=== PATIENT | female | born 1940 | race Caucasian/White ===

== ENCOUNTER 2022-10-05 03:09 | Inpatient (IN) | payer OTHER ==
[~2022-10-05] VITALS: Ht 157.5 cm; Wt 64.9 kg
[2022-10-05] VITALS: BP_SYST 141
[2022-10-05 03:09] VITALS: BP_SYST 147
--- NOTE | 2022-10-05 03:09 | NUR ---
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 Report given to MIKE Dill.
--- NOTE | 2022-10-05 03:10 | NUR ---
# 14 FR In and Out catheter with use of sterile technique. Immediate return of 20 ml YELLOW, CLOUDY urine noted. Urine sample collected and sent to lab. Pt tolerated procedure WELL. Patient unable to toilet self.
--- NOTE | 2022-10-05 03:15 | NUR ---
Dr. Bob at bedside.
--- NOTE | 2022-10-05 03:44 | NUR ---
PT BIB ALS FROM HOME W C/O FALL WITNESSED BY . ALS STATED THAT WAS ASSISTING PATIENT TO THE RESTROOM WHEN PATIENT FELL. STATED TO ALS THAT PATIENT WAS NOT ACTING HERSELF AROUND THE TIME OF FALL. PATIENT ARRIVED SLEEPING AND DIFFICULT TO AROUSE. SKIN INTACT, NO INJURIES NOTED. THERE IS AN OLD BRUISE TO THE MID UPPER FOREHEAD.
[2022-10-05 04:09] LABS: BILIRUBIN,URINE NEGATIVE (NEGATIVE); BLOOD, URINE NEGATIVE (NEGATIVE); COLOR,URINE YELLOW (YELLOW); GLUCOSE,URINE NEGATIVE (NEGATIVE); KETONES,URINE NEGATIVE (NEGATIVE); LEUKOCYTE ESTERASE ,URINE TRACE (NEGATIVE); NITRITE, URINE POSITIVE (NEGATIVE); PROTEIN URINE TRACE (NEGATIVE); UROBILINOGEN,URINE 0.2 (0.2-1.0)
[2022-10-05 04:14] LABS: BASOPHILS # (AUTO) 0.1 K/uL (0.0-0.2); BASOPHILS % (AUTO) 0.7 % (0.0-2.0); EOSINOPHILS # (AUTO) 0.2 K/uL (0.0-0.4); EOSINOPHILS % (AUTO) 2.4 % (0.0-4.0); HEMATOCRIT 35.8 % (36-48); HEMOGLOBIN 11.6 g/dL (12.0-16.0); LYMPHOCYTES # (AUTO) 1.7 K/uL (1.0-5.5); LYMPHOCYTES % (AUTO) 17.7 % (20.5-51.5); MEAN CORPUSCULAR HEMOGLOBIN 28 pg (27-31); MEAN CORPUSCULAR HGB CONC 33 % (32-36); MEAN CORPUSCULAR VOLUME 85 fL (79.0-98.0); MONOCYTES # (AUTO) 0.9 K/uL (0.0-1.0); MONOCYTES % (AUTO) 9.1 % (1.7-9.3); NEUTROPHILS # (AUTO) 6.9 K/uL (1.8-7.7); NEUTROPHILS % (AUTO) 70.1 % (40.0-70.0); PLATELET COUNT (AUTO) 247 K/uL (130-430); RED BLOOD CELL COUNT(AUTO) 4.23 MIL/uL (4.2-6.2); RED CELL DISTRIBUTION WIDTH 16.1 % (9.0-15.0); WHITE BLOOD COUNT (AUTO) 9.9 K/uL (4.8-10.8)
[2022-10-05 04:16] LABS: ANION GAP 10 (5-15); CALCIUM 9.2 mg/dL (8.4-11.0); CHLORIDE 103 mmol/L (98-107); CREATININE 1.24 mg/dL (0.55-1.30); GLUCOSE 125 mg/dL (70-99); UREA NITROGEN, BLOOD 28 mg/dL (8-21)
[2022-10-05 04:21] LABS: ALANINE AMINOTRANSFERASE 19 U/L (12-78); ALBUMIN 3.1 g/dL (3.4-4.8); ASPARTATE AMINOTRANSFERASE 15 U/L (10-37); TOTAL BILIRUBIN 0.6 mg/dL (0.0-1.0)
[2022-10-05 04:28] LABS: CLARITY/URINE SLIGHTLY CLOUDY (CLEAR)
[2022-10-05 04:31] LABS: BACTERIA,URINE MANY /HPF (None Seen); RBC,URINE 0-3 /HPF (0-3)
[2022-10-05] MEDS ORDERED: D5/0.45 NS 1,000 ML IV SCH (05:00)
[2022-10-05] MEDS ORDERED: cefTRIAXone 1 GM IVPB PREMIX 50 ML IV ONE (05:00)
[2022-10-05] MEDS ORDERED: PANT40TA45 PO (05:03)
[2022-10-05] MEDS ORDERED: OLAN5TAB71 PO (05:03)
[2022-10-05] MEDS ORDERED: HYDR-3698 PO (05:03)
[2022-10-05] MEDS ORDERED: ALBU2.5V7 HHN (05:03)
[2022-10-05] MEDS ORDERED: AMLO5TAB92 PO (05:03)
[2022-10-05] MEDS ORDERED: FLUT1BLS15 INH (05:03)
[2022-10-05] MEDS ORDERED: ATOR10TA68 PO (05:03)
[2022-10-05] MEDS ORDERED: ESCI-6 PO (05:03)
[2022-10-05] MEDS ORDERED: GABAPENTIN (05:03)
[2022-10-05] MEDS ORDERED: PRED10TA PO (05:03)
--- NOTE | 2022-10-05 05:10 | NUR ---
REC PATIENT FROM [facility]. PT WAS SEIZING WHEN REC, FOR 1 MINUTE. MD AT BEDSIDE. SEIZURE PRECAUTIONS IN PLACE AND CONNECTED TO MONITOR. VSS. PT A&O X0 WHICH IS BASELINE FROM ARRIVAL. PT BREFIELY AROUSABLE TO PHYSICAL STIMULI.
[2022-10-05] MEDS ORDERED: NS IV ONE (05:15)
[2022-10-05] MEDS ORDERED: LEVETIRACETAM IV ONE (05:15)
--- NOTE | 2022-10-05 05:35 | NUR ---
DR. CEDENO CALLED AND MADE AWARE OF SEIZURE. NEW ORDERS GIVEN.
--- NOTE | 2022-10-05 05:46 | NUR ---
Admit bed requested Patient will be admitted to care of . Admitted to TELEMETRY unit. Diagnosis UTI SEPSIS Inpatient (Yes or No) YES Observation (Yes or No) NO Orientation concerns or request close to nursing station (Yes or No) NO Covid Status NEGATIVE On vent or bipap NO Isolation requirements NO Needs a sitter NO From Home (Yes or if No enter name of facility) HOME Requires Dialysis (Yes or No) NO Med Rec Completed (Yes of No) YES
--- NOTE | 2022-10-05 07:13 | NUR ---
REPORT GIVEN TO LARON MCKEON TO ASSUME CARE.
--- NOTE | 2022-10-05 07:15 | NUR ---
RECEIVED REPORT FROM [facility] AND WILL ASSUME CARE
--- NOTE | 2022-10-05 07:20 | NUR ---
PT SLEEPING QUIETLY AT THIS TIME. NO DISTRESS, VSS. WILL CONTINUE TO MONITOR
[2022-10-05] MEDS: CEFEPIME 1 GM in D5W 50 ML IV SCH (08:55)
--- NOTE | 2022-10-05 09:01 | NUR ---
SLEEPING QUIETLY. NO CHANGES.
--- NOTE | 2022-10-05 09:45 | NUR ---
PT SLEEPING QUIETLY, NO CHANGES. VSS
[2022-10-05 09:56] LABS: BARBITURATE, URINE NEGATIVE (NEG <=200); BENZODIAZEPINE, URINE NEGATIVE (NEG <=150); CANNABINOID, URINE NEGATIVE (NEG <=50); COCAINE, URINE NEGATIVE (NEG <=150); METHAMPHETAMINES SCREEN,URINE NEGATIVE (NEG <=500); OPIATE, URINE NEGATIVE (NEG <=100); PHENCYCLIDINE SCREEN,URINE NEGATIVE (NEG <=25); UR TRICYCLIC ANTIDEPRESSANTS NEGATIVE (NEG <=300); URINE AMPHETAMINE NEGATIVE (NEG <=500); URINE METHADONE NEGATIVE (NEG <=200); URINE OXYCODONE SCREEN NEGATIVE (NEG <=100); URINE PROPOXYPHENE SCREEN NEGATIVE (NEG <=300)
[2022-10-05] MEDS: levETIRAcetam 1,000 MG in NS 100 ML IV SCH ×2 (09:57→22:18)
--- NOTE | 2022-10-05 11:10 | NUR ---
PT IS HARD TO AROUSE, REPOSITIONED AND NOW A BIT MORE AROUSABLE. MOANING AND MOVING ALL EXTREMITIES. VSS
--- NOTE | 2022-10-05 12:01 | NUR ---
CALL TO DR CEDENO, NEW ORDERS RECEIVED.
--- NOTE | 2022-10-05 12:14 | NUR ---
ADMISSION CONSULTS HAVE BEEN PAGED ORDERED BY DR. CEDNEO
--- NOTE | 2022-10-05 12:19 | NUR ---
TAKEN FOR IMAGINING AT RADIOLOGY VIA D[facility]
--- NOTE | 2022-10-05 13:32 | NUR ---
SPOKE WITH DAUGHTER CHAD AND ALL PERSONAL INFORMATION UPDATED, GIVEN TO ADMITTING TO FIX
--- NOTE | 2022-10-05 14:10 | NUR ---
Patient will be admitted to care of DR CEDENO. Admitted to TELE unit. Will go to room 132B. Belongings list completed. Complete and up to date summary report printed. SBAR report to be given at bedside with opportunity for questions.WILL GIVE BEDSIDE REPORT TO TELE NURSE
--- NOTE | 2022-10-05 14:12 | NUR ---
CALL PLACED TO DAUGHTER CHAD AND TOLD ABOUT MOVE TO TELE UNIT
--- NOTE | 2022-10-05 14:39 | NUR ---
CONSULTATION PAGED/CALLED Reason for Consultation: [] UTI, SEPSIS Person Who was Notified: [] JAMES Consulting Physician: [] DR NUNN Levers Lace Machine Operator Specialty: [] ID Ordering Physician: [] DR CEDENO
--- NOTE | 2022-10-05 14:40 | NUR ---
TEXTED NEURO CONSULT TO DR Lowell DANIELS.
--- NOTE | 2022-10-05 14:49 | NUR ---
Report received from MILADY Mckeon RN for continuity of care. Patient is alert and oriented x1 with periods of wakefulness and lethargy. Patient on 2L NC. Respiration even and unlabored. Patient appears to be sleeping, but able to wake up upon movement. Linens removed from underneath. Patient vital signs stable. Daughter called to be informed that patient arrived to unit. Patient on IV fluids. Will continue to monitor. Call light within reach.
[2022-10-05 14:53] VITALS: BP_SYST 152
[2022-10-05] MEDS: KCL 20 mEq in D5/0.45NS 1000mL 1,000 ML IV SCH (15:30)
[2022-10-05] MEDS ORDERED: LevALBUTEROL HCL 1.25 MG/0.5 ML *CONC.* VIAL.NEB (XOPENEX CONC.) INH PRN (15:30)
--- NOTE | 2022-10-05 15:33 | NUR ---
Dr. Palafox made aware of potassium lab values and blood pressure. New orders noted and carried out.
--- NOTE | 2022-10-05 16:05 | NUR ---
ST EVAL COMPLETED. ST TX NOT INDICATED AT THIS TIME. RECOMMEND PO DIET OF MECHANICAL SOFT CHOPPED AND THIN LIQUIDS. 1:1 FEEDER AND FULL ASPIRATION PRECAUTIONS.
[2022-10-05 16:14] VITALS: BP_SYST 154
--- NOTE | 2022-10-05 19:02 | NUR ---
Dr. Moses at bedside to see patient. Will continue to monitor.
[2022-10-05 19:40] VITALS: BP_SYST 156
--- NOTE | 2022-10-05 20:25 | NUR ---
BEDSIDE REPORT RECEIVED/ INITIAL NOTE LATE REPORT RECEIVED DUE TO STAFF ASSIGNMENT CHANGE. BEDSIDE REPORT RECEIVED AT THIS TIME. AT INITIAL ASSESSMENT, PATIENT IS LETHARGIC, SHE AWAKES TO LIGHT TOUGH BUT IS NONVERBAL. PATIENT SEEMS TO BE ABLE TO TRACK NURSE WITH HER EYES PERIFOCALLY FOR A FEW SECONDS. SHE IS CONFUSED AND UNABLE TO FOLLOW DIRECTIONS AT THIS TIME. PATIENT WILL BE KEPT IN A ROOM WITHIN EYESITE OF NURSING STATION FOR CLOSE MONITORING. BED IS LOCKED, ALARMED, AND AT THE LOWEST LEVEL. FALL, SAFETY, ASPIRATION, RESPIRATORY, AND SEIZURE PRECAUTIONS WILL BE TAKEN THROUGHOUT THE SHIFT.
[2022-10-05] MEDS: predniSONE 10 MG TABLET PO SCH (21:00)
[2022-10-05] MEDS: ENOXAPARIN SODIUM 30 MG/0.3 ML SYRINGE SUBCUT SCH (22:18)
[2022-10-05] MEDS: LevALBUTEROL HCL 1.25 MG/0.5 ML *CONC.* VIAL.NEB (XOPENEX CONC.) INH SCH (22:57)
--- NOTE | 2022-10-05 23:00 | NUR ---
COMMUNICATION W/ DR. PAO CEDENO PAGED AT THIS TIME, MD WAS MADE AWARE THAT PATIENT IS SHAKING IN A WAY THAT LOOKS LIKE SEIZURES BUT SHE IS ABLE TO TRACK NURSE WITH HER EYES MOMENTARILY. MD MADE AWARE THAT PATIENT IS STILL NONVERBAL/ CONFUSED/ LETHARGIC/ MAKING SOUNDS LIKE SHE IS VOMITING BUT WITHOUT ANY EMESIS NOTED. MD ALSO MADE AWARE THAT PATIENT'S BLOOD PRESSURE IS ELEVATED (SBP OVER 200). UPON ASSESSMENT BY RN AND RT, NO SIGNS OF ASPIRATION NOTED. MD GAVE NEW ORDERS, ALL ORDERS READ BACK AND VERIFIED. STATED NO PRN ATIVAN FOR NOW.
--- NOTE | 2022-10-05 23:20 | NUR ---
HYGIENE CARE HYGIENE CARE PROVIDED AT THIS TIME, FRESH LINENS PROVIDED. PATIENT REPOSITIONED FOR COMFORT. PATIENT TOLERATED WELL.
[2022-10-05] MEDS: hydrALAZINE HCL 20 MG/ML VIAL IVP PRN (23:30)
[2022-10-05] MEDS: BUDESONIDE 0.5 MG/2 ML AMPUL.NEB INH SCH (23:35)
[2022-10-06] VITALS: BP_SYST 141
--- NOTE | 2022-10-06 02:00 | NUR ---
HYGIENE CARE HYGIENE CARE PROVIDED AT THIS TIME, FRESH LINENS PROVIDED. PATIENT REPOSITIONED FOR COMFORT. PATIENT TOLERATED WELL.
--- NOTE | 2022-10-06 04:20 | NUR ---
PATIENT AGITATED / DR. CEDENO PAGED PATIENT HAS BECOME VERY AGITATED AT THIS TIME, RESTLESS, AND SHE IS CONTINUOUSLY YELLING SOUNDS WITHOUT FORMING WORDS. DESPITE NUMEROUS ATTEMPTS TO REPOSITION PATIENT FOR COMFORT, SHE CONTINUES TO SQUIRM AROUND WITH MUCH STRENGTH. BED RAILINGS HAVE SEIZURE PADS AND PILLOWS TO PROTECT HER FROM HITTING HER HEAD OR INJURING HER BODY. , BUT TWO NURSES NEEDED TO STAY WITH HER AT BEDSIDE TO PREVENT HER FROM FALLING OFF THE BED/ INJURING HERSELF BY HITTING BED RAILINGS/ ACCIDENTALLY PULLING OUT HER TUBINGS. DR. CEDENO PAGEIrwin AT THIS TIME/ AWAITING CALL BACK.
--- NOTE | 2022-10-06 05:00 | NUR ---
PAGED DR. CEDENO SECOND PAGE TO DR. CEDENO. AWAITING CALL BACK.
[2022-10-06] MEDS ORDERED: HALOPERIDOL LACTATE 5 MG/ML VIAL IM ONE (06:00)
--- NOTE | 2022-10-06 06:00 | NUR ---
COMMUNICATION W/ DR. PAO CEDENO PAGED BACK AT THIS TIME, PATIENT'S CHANGE OF CONDITION/ AGITATION/ RESTLESSNESS COMMUNICATED. MD GAVE NEW ORDER, ORDER READ BACK AND VERIFIED.
[2022-10-06 06:21] LABS: ANION GAP 11 (5-15); BASOPHILS # (AUTO) 0.1 K/uL (0.0-0.2); BASOPHILS % (AUTO) 0.5 % (0.0-2.0); CALCIUM 9.6 mg/dL (8.4-11.0); CHLORIDE 108 mmol/L (98-107); CREATININE 1.03 mg/dL (0.55-1.30); GLUCOSE 117 mg/dL (70-99); HEMATOCRIT 40.7 % (36-48); HEMOGLOBIN 12.9 g/dL (12.0-16.0); LYMPHOCYTES # (AUTO) 0.7 K/uL (1.0-5.5); LYMPHOCYTES % (AUTO) 4.7 % (20.5-51.5); MEAN CORPUSCULAR HEMOGLOBIN 27 pg (27-31); MEAN CORPUSCULAR HGB CONC 32 % (32-36); MEAN CORPUSCULAR VOLUME 85 fL (79.0-98.0); MONOCYTES # (AUTO) 0.7 K/uL (0.0-1.0); MONOCYTES % (AUTO) 4.6 % (1.7-9.3); NEUTROPHILS # (AUTO) 13.6 K/uL (1.8-7.7); NEUTROPHILS % (AUTO) 90.2 % (40.0-70.0); PLATELET COUNT (AUTO) 318 K/uL (130-430); RED BLOOD CELL COUNT(AUTO) 4.78 MIL/uL (4.2-6.2); RED CELL DISTRIBUTION WIDTH 16.2 % (9.0-15.0); UREA NITROGEN, BLOOD 17 mg/dL (8-21); WHITE BLOOD COUNT (AUTO) 15.1 K/uL (4.8-10.8)
--- NOTE | 2022-10-06 06:45 | NUR ---
CLOSING NOTE PATIENT HAD A CHANGE OF CONDITION AROUND 0300 AM, SHE IS NO LONGER LETHARGIC, BUT HAS BECOME VERY AGITATED AND RESTLESS. HALDOL 3 MG IM ONE TIME DOSE ORDERED BY DR. CEDENO GIVEN AT THIS TIME. BED IS LOCKED, ALARMED, AND AT THE LOWEST LEVEL. PATIENT IS IN A ROOM WITHIN EYESITE OF NURSING STATION FOR CLOSE MONITORING. FALL, SAFETY, RESPIRATORY, AND ASPIRATION PRECAUTIONS HAVE BEEN TAKEN THROUGHOUT THE SHIFT. WILL CONTINUE TO MONITOR CLOSELY UNTIL REPORT IS GIVEN AT BEDSIDE TO AM NURSE.
[2022-10-06] MEDS: KCL 20 mEq in D5/0.45NS 1000mL 1,000 ML IV SCH ×2 (06:49→21:25)
[2022-10-06] MEDS: BUDESONIDE 0.5 MG/2 ML AMPUL.NEB INH SCH ×2 (06:58→20:05)
[2022-10-06] MEDS: LevALBUTEROL HCL 1.25 MG/0.5 ML *CONC.* VIAL.NEB (XOPENEX CONC.) INH SCH ×3 (06:59→23:34)
--- NOTE | 2022-10-06 08:00 | NUR ---
OPENING NOTES: PT IN BED AGITATED, RESTLESS ATTEMPTING TO GET OUT OF BED. NON-VERBAL AND CONFUSED. A/O X 0. BED LOW IN LOCKED POSITION, BED ALARM ON AND CALL LIGHT WITHIN REACH.
[2022-10-06] MEDS: CEFEPIME 1 GM in D5W 50 ML IV SCH (08:16)
[2022-10-06 08:21] VITALS: BP_SYST 153
--- NOTE | 2022-10-06 08:56 | NUR ---
safety patient is attempting to get out of bed, very confused, twisting in bed, pulled out IV. Called and spoke with Dr Palafox, asked for restraints for patients safety. Dr Palafox refused. New orders received
--- NOTE | 2022-10-06 08:59 | NUR ---
electrician helper powerhouse informed electrician helper powerhouse that Dr Palafox ordered sitter.
[2022-10-06] MEDS: ATORVASTATIN 10 MG TABLET PO SCH (09:00)
[2022-10-06] MEDS ORDERED: PANTOPRAZOLE SODIUM 40 MG TAB PO SCH (09:00)
[2022-10-06] MEDS: levETIRAcetam 1,000 MG in NS 100 ML IV SCH ×2 (09:00→21:26)
[2022-10-06] MEDS: PANTOPRAZOLE SODIUM 40 MG/VIAL (PROTONIX) IVP SCH (09:00)
[2022-10-06] MEDS: predniSONE 10 MG TABLET PO SCH ×2 (09:00→21:00)
[2022-10-06] MEDS: amLODIPine BESYLATE 5 MG TABLET PO SCH (09:00)
--- NOTE | 2022-10-06 10:22 | NUR ---
NOTES: Paged Dr. Farfan about picc line insertion order.
--- NOTE | 2022-10-06 10:35 | NUR ---
: Spoke with Dr. ac regarding pt need for IV access. New orders received
[2022-10-06 11:10] LABS: PROTHROMBIN TIME 9.9 SECS (9.5-12.5)
--- NOTE | 2022-10-06 11:24 | NUR ---
consent spoke with patients daughter Eileen Stafford. Informed of the need for PICC line insertion. Answered all questions, daughter verbalized understanding and gave consent. Second RN witness
--- NOTE | 2022-10-06 12:20 | NUR ---
ROUNDS: PT IN BED WITH EYES CLOSED. NO S/S OF DISTRESS. BREATHING IS EVEN AND UNLABORED ON 2L NC. ALL NEEDS MET AT THIS TIME, SAFETY CHECKS MADE AND CALL LIGHT WITHIN REACH.
[2022-10-06 12:45] VITALS: BP_SYST 158
--- NOTE | 2022-10-06 12:55 | NUR ---
picc PICC line RN bedside for procedure Addendum: 10/06/22 at 1300 by Darrick Pearl RN mid line placement not PICC
--- NOTE | 2022-10-06 14:31 | NUR ---
IV ATTACHED TO MID LINE, FLUSHED FREELY. IVF'S RUNNING ORDERED.
--- NOTE | 2022-10-06 14:50 | NUR ---
MD DR CEDENO BEDSIDE EXAMINING PATIENT. PATIENT IS A0X0, RESPIRATIONS EVEN, NON LABORED. DR CEDENO ORDERED PUREED DIET FOR PATIENT AND STATED TO NOT WAIT FOR SWALLOW EVAL.
[2022-10-06 16:50] VITALS: BP_SYST 134
--- NOTE | 2022-10-06 17:22 | NUR ---
MD DR GABRIEL BEDSIDE EXAMINING PATIENT. DAUGHTER BEDSIDE WELL
[2022-10-06] MEDS: PIPERACILLIN/TAZO 2.25G/DEX-IS 50 ML IV SCH (17:32)
--- NOTE | 2022-10-06 17:57 | NUR ---
MD DR DANIELS IS AT BEDSIDE WITH PT AND FAMILY.
--- NOTE | 2022-10-06 18:33 | NUR ---
INFORMED DR CEDENO THAT PATIENT IS COMPLAINING OF A HEADACHE. NEW ORDERS RECEIVED
--- NOTE | 2022-10-06 18:47 | NUR ---
CLOSING NOTES: PT IN BED RESTLESS. PT REFUSED PRN MED FOR HEADACHE. BREATHING IS EVEN AND UNLABORED. ALL NEEDS MET AT THIS TIME, SAFETY CHECKS MADE AND CALL LIGHT WITHIN REACH.
[2022-10-06 19:45] VITALS: BP_SYST 157
[2022-10-06] MEDS: ENOXAPARIN SODIUM 30 MG/0.3 ML SYRINGE SUBCUT SCH (21:26)
--- NOTE | 2022-10-06 23:00 | NUR ---
COMMUNICATION W/ DR. PAO CEDENO PAGED AT THIS TIME, MD WAS MADE AWARE THAT PATIENT IS NO LONGER RESTLESS, MD VERBALIZED OK TO D/C SITTER AT BEDSIDE. MD ALSO GAVE ONE TIME ORDER FOR HALDOL 3MG IM ONE TIME PRN FOR AGITATION OR ANXIETY. ALL ORDERS READ BACK AND VERIFIED.
[2022-10-06] MEDS ORDERED: HALOPERIDOL LACTATE 5 MG/ML VIAL IM PRN (23:15)
[2022-10-07] VITALS: BP_SYST 150
[2022-10-07] MEDS: ACETAMINOPHEN 325 MG TABLET PO PRN ×2 (01:22→16:44)
[2022-10-07] MEDS: PIPERACILLIN/TAZO 2.25G/DEX-IS 50 ML IV SCH ×5 (01:24→23:45)
--- NOTE | 2022-10-07 06:45 | NUR ---
CLOSING NOTE PATIENT'S CONDITION IS IMPROVING, SHE WAS ABLE TO SPEAK SMALL PHRASES AND ALSO FOLLOW SOME SIMPLE COMMANDS SUCH RAISING HER HEAD. SHE REMAINS CONFUSED AND STARTED GETTING RESTLESS AROUND 0200, PRN MEDICATION GIVEN WAS EFFECTIVE FOR HER RESTLESSNESS, SHE REMAINED AWAKE BUT WAS NO LONGER AGITATED. PATIENT ALSO WAS ABLE TO TAKE SOME PUREED FOOD DURING THE NIGHT, SHE NEEDS A FEEDER TO ASSIST HER MEALS AT THIS TIME STILL. PATIENT IS IN A ROOM WITHIN EYE SITE OF NURSING STATION FOR CLOSE MONITORING. FALL, SAFETY, RESPIRATORY, ASPIRATION, AND SEIZURE PRECAUTIONS HAVE BEEN TAKEN THROUGHOUT THE SHIFT. WILL CONTINUE TO MONITOR CLOSELY UNTIL REPORT IS GIVEN AT BEDSIDE TO AM NURSE.
[2022-10-07] MEDS: BUDESONIDE 0.5 MG/2 ML AMPUL.NEB INH SCH ×2 (07:19→19:43)
[2022-10-07] MEDS: LevALBUTEROL HCL 1.25 MG/0.5 ML *CONC.* VIAL.NEB (XOPENEX CONC.) INH SCH ×3 (07:19→23:39)
[2022-10-07 08:00] VITALS: BP_SYST 159
--- NOTE | 2022-10-07 08:00 | NUR ---
OPENING NOTES: PT IN BED WITH EYES CLOSED. NO S/S OF DISTRESS OR PAIN REPORTED. BREATHING IS EVEN AND UNLABORED ON 2L NC. ALL NEEDS MET AT THIS TIME, SAFETY CHECKS MADE AND CALL LIGHT WITHIN REACH.
[2022-10-07 08:34] LABS: BASOPHILS # (AUTO) 0.1 K/uL (0.0-0.2); BASOPHILS % (AUTO) 0.7 % (0.0-2.0); EOSINOPHILS % (AUTO) 0.3 % (0.0-4.0); HEMATOCRIT 38.1 % (36-48); HEMOGLOBIN 12.1 g/dL (12.0-16.0); LYMPHOCYTES # (AUTO) 1.8 K/uL (1.0-5.5); LYMPHOCYTES % (AUTO) 17.1 % (20.5-51.5); MEAN CORPUSCULAR HEMOGLOBIN 27 pg (27-31); MEAN CORPUSCULAR HGB CONC 32 % (32-36); MEAN CORPUSCULAR VOLUME 85 fL (79.0-98.0); MONOCYTES # (AUTO) 0.9 K/uL (0.0-1.0); MONOCYTES % (AUTO) 8.3 % (1.7-9.3); NEUTROPHILS # (AUTO) 7.7 K/uL (1.8-7.7); NEUTROPHILS % (AUTO) 73.6 % (40.0-70.0); PLATELET COUNT (AUTO) 260 K/uL (130-430); RED BLOOD CELL COUNT(AUTO) 4.47 MIL/uL (4.2-6.2); WHITE BLOOD COUNT (AUTO) 10.4 K/uL (4.8-10.8)
[2022-10-07 08:47] LABS: ANION GAP 10 (5-15); CALCIUM 9.8 mg/dL (8.4-11.0); CHLORIDE 108 mmol/L (98-107); CREATININE 1.02 mg/dL (0.55-1.30); GLUCOSE 122 mg/dL (70-99); UREA NITROGEN, BLOOD 23 mg/dL (8-21)
[2022-10-07] MEDS: KCL 20 mEq in D5/0.45NS 1000mL 1,000 ML IV SCH ×2 (09:20→14:18)
[2022-10-07] MEDS: predniSONE 10 MG TABLET PO SCH ×2 (09:24→20:47)
[2022-10-07] MEDS: amLODIPine BESYLATE 5 MG TABLET PO SCH (09:25)
[2022-10-07] MEDS: ATORVASTATIN 10 MG TABLET PO SCH (09:25)
[2022-10-07] MEDS: PANTOPRAZOLE SODIUM 40 MG/VIAL (PROTONIX) IVP SCH (09:54)
[2022-10-07 10:32] VITALS: BP_SYST 159
--- NOTE | 2022-10-07 10:55 | NUR ---
MD: DR TRAN RETURNED CALL REGARDING PT POTASSIUM LEVEL. RECEIVED NEW ORDERS
[2022-10-07] MEDS ORDERED: POTASSIUM CHLORIDE 20 MEQ TAB.PRT.SR PO ONE (11:15)
[2022-10-07 11:50] VITALS: BP_SYST 129
[2022-10-07 15:25] VITALS: BP_SYST 153
--- NOTE | 2022-10-07 18:20 | NUR ---
CLOSING NOTE: PT IN BED WITH EYES CLOSED. A/O X 3. BREATHING IS EVEN AND UNLABORED. NO S/S OF DISTRESS OR PAIN REPORTED. ALL NEEDS MET AT THIS TIME, SAFETY CHECKS MADE AND CALL LIGHT WITHIN REACH.
--- NOTE | 2022-10-07 19:30 | NUR ---
OPENING NOTE Pt is awake lying in bed. No s/s of respiratory distress. Breathing even and unlabored on 2L nasal cannula, tolerating well. JASMYN midline intact and patent with fluids running at ordered rate. Hammond catheter intact and draining by gravity. Seizure precautions in place with padded siderails. Fall precautions in place with bed in lowest position, bed alarm on, and call light within reach
[2022-10-07 20:00] VITALS: BP_SYST 143
[2022-10-07] MEDS: ENOXAPARIN SODIUM 30 MG/0.3 ML SYRINGE SUBCUT SCH (20:47)
[2022-10-07] MEDS: hydrALAZINE HCL 20 MG/ML VIAL IVP PRN (23:39)
[2022-10-08] VITALS (7 sets, daily range): BP systolic 110–162
--- NOTE | 2022-10-08 00:15 | NUR ---
ROUNDS Pt lying in bed, eyes closed. Breathing even and unlabored. No s/s of acute distress. Seizures and fall precautions in place
[2022-10-08] MEDS: PIPERACILLIN/TAZO 2.25G/DEX-IS 50 ML IV SCH ×2 (06:30→12:24)
[2022-10-08] MEDS: BUDESONIDE 0.5 MG/2 ML AMPUL.NEB INH SCH (07:00)
[2022-10-08] MEDS: LevALBUTEROL HCL 1.25 MG/0.5 ML *CONC.* VIAL.NEB (XOPENEX CONC.) INH SCH ×2 (07:16→15:21)
[2022-10-08 07:39] LABS: ANION GAP 10 (5-15); CALCIUM 9.7 mg/dL (8.4-11.0); CHLORIDE 107 mmol/L (98-107); CREATININE 0.92 mg/dL (0.55-1.30); GLUCOSE 129 mg/dL (70-99); UREA NITROGEN, BLOOD 27 mg/dL (8-21)
--- NOTE | 2022-10-08 08:00 | NUR ---
Initial notes Awake,alert x3, still feels weak. Needs to be feed, on pureed diet. On O2 3L, denies any pain or discomfort at this time. IVF infusing well. afebrile, bed alarm on
[2022-10-08] MEDS: PANTOPRAZOLE SODIUM 40 MG/VIAL (PROTONIX) IVP SCH (08:43)
[2022-10-08] MEDS: predniSONE 10 MG TABLET PO SCH ×2 (08:44→21:24)
[2022-10-08] MEDS: amLODIPine BESYLATE 5 MG TABLET PO SCH (08:44)
[2022-10-08] MEDS: ATORVASTATIN 10 MG TABLET PO SCH (08:44)
--- NOTE | 2022-10-08 11:00 | NUR ---
EEG- STAFF AT BEDSIDE DOING EEG.
[2022-10-08] MEDS: KCL 20 mEq in D5/0.45NS 1000mL 1,000 ML IV SCH (12:00)
[2022-10-08] MEDS: hydrALAZINE HCL 20 MG/ML VIAL IVP PRN (14:02)
[2022-10-08] MEDS: cefTRIAXone 1 GM in D5W 50 ML IV SCH (15:24)
[2022-10-08] MEDS: VANCOMYCIN HCL 1,000 MG in NS 250 ML IV SCH (15:33)
--- NOTE | 2022-10-08 16:00 | NUR ---
Notes-resting, family at bedside. No distress
--- NOTE | 2022-10-08 18:13 | NUR ---
closing notes alert, denies any pain. No signs of distress. IVF infusing well. all needs met.
--- NOTE | 2022-10-08 20:33 | NUR ---
RECEIVED REPORT ON PATIENT FROM IRINA, TECHNOLOGY EDUCATION INSTRUCTOR, ASSUMED CARE, AND STARTED ASSESSMENT.
[2022-10-08] MEDS: ENOXAPARIN SODIUM 30 MG/0.3 ML SYRINGE SUBCUT SCH (21:24)
[2022-10-09] MEDS: KCL 20 mEq in D5/0.45NS 1000mL 1,000 ML IV SCH ×2 (01:20→15:35)
[2022-10-09] MEDS: BUDESONIDE 0.5 MG/2 ML AMPUL.NEB INH SCH ×3 (02:07→19:58)
[2022-10-09] MEDS: LevALBUTEROL HCL 1.25 MG/0.5 ML *CONC.* VIAL.NEB (XOPENEX CONC.) INH SCH ×4 (02:08→23:55)
[2022-10-09 06:43] LABS: BASOPHILS % (AUTO) 0.4 % (0.0-2.0); EOSINOPHILS % (AUTO) 0.2 % (0.0-4.0); HEMATOCRIT 37.2 % (36-48); LYMPHOCYTES % (AUTO) 10.4 % (20.5-51.5); MEAN CORPUSCULAR HEMOGLOBIN 28 pg (27-31); MEAN CORPUSCULAR HGB CONC 32 % (32-36); MEAN CORPUSCULAR VOLUME 85 fL (79.0-98.0); MONOCYTES # (AUTO) 0.6 K/uL (0.0-1.0); MONOCYTES % (AUTO) 6.1 % (1.7-9.3); NEUTROPHILS # (AUTO) 7.8 K/uL (1.8-7.7); NEUTROPHILS % (AUTO) 82.9 % (40.0-70.0); PLATELET COUNT (AUTO) 248 K/uL (130-430); RED BLOOD CELL COUNT(AUTO) 4.36 MIL/uL (4.2-6.2); RED CELL DISTRIBUTION WIDTH 15.8 % (9.0-15.0); WHITE BLOOD COUNT (AUTO) 9.4 K/uL (4.8-10.8)
[2022-10-09 06:50] LABS: ANION GAP 9 (5-15); CALCIUM 9.7 mg/dL (8.4-11.0); CHLORIDE 106 mmol/L (98-107); CREATININE 0.91 mg/dL (0.55-1.30); GLUCOSE 123 mg/dL (70-99); UREA NITROGEN, BLOOD 29 mg/dL (8-21)
--- NOTE | 2022-10-09 07:37 | NUR ---
REPORT WAS GIVEN TO MIKE AMARO, AND CARE WAS TURNED OVER TO HER.
--- NOTE | 2022-10-09 07:40 | NUR ---
OPENING NOTE PT RESTING IN BED. IVF RUNNING ORDERED. NO IV INFILTRATION OR INFECTION NOTED. DEVLIN DRAINING BY GRAVITY. NO S/S ACUTE DISTRESS NOTED. SAFETY PRECAUTION IN PLACED. BED IS LOCKED AND AT LOW POSITION. ENCOURAGED TO USE CALL LIGHT FOR ASSISTANCE.WILL CONT TO MONITOR.
[2022-10-09 08:00] VITALS: BP_SYST 142
[2022-10-09] MEDS: ATORVASTATIN 10 MG TABLET PO SCH (09:55)
[2022-10-09] MEDS: amLODIPine BESYLATE 5 MG TABLET PO SCH (09:55)
[2022-10-09] MEDS: PANTOPRAZOLE SODIUM 40 MG/VIAL (PROTONIX) IVP SCH (09:56)
[2022-10-09] MEDS: predniSONE 10 MG TABLET PO SCH ×2 (09:57→22:14)
[2022-10-09] MEDS: hydrALAZINE HCL 20 MG/ML VIAL IVP PRN (11:41)
[2022-10-09 13:46] VITALS: BP_SYST 157
[2022-10-09] MEDS: ACETAMINOPHEN 325 MG TABLET PO PRN (14:06)
--- NOTE | 2022-10-09 14:30 | NUR ---
NOTES; NO DISCHARGE YET PER DR. FAJARDO.
[2022-10-09] MEDS: cefTRIAXone 1 GM in D5W 50 ML IV SCH (15:35)
[2022-10-09] MEDS: VANCOMYCIN HCL 1,000 MG in NS 250 ML IV SCH (16:34)
--- NOTE | 2022-10-09 17:10 | NUR ---
NOTES; LAB STAFF COULD NOT SEE THE BLOOD CULTURE ORDER. PLACED THE ORDER AGAIN. CLS CAME IN TO DRAW BLOOD.
[2022-10-09 17:40] VITALS: BP_SYST 137
--- NOTE | 2022-10-09 17:42 | NUR ---
PT NOTES PT EVAL AND INITIAL TX COMPLETED. PLEASE SEE EVAL FOR DETAILS.
--- NOTE | 2022-10-09 19:20 | NUR ---
CLOSING NOTE PT RESTING IN BED. IVF RUNNING ORDERED. NO IV INFILTRATION OR INFECTION NOTED. DEVLIN DRAINING BY GRAVITY. NO S/S ACUTE DISTRESS NOTED. SAFETY PRECAUTION IN PLACED. BED IS LOCKED AND AT LOW POSITION. ENCOURAGED TO USE CALL LIGHT FOR ASSISTANCE.WILL ENDORSE CARE TO COOK SYRUP MAKER RN.
[2022-10-09 20:00] VITALS: BP_SYST 159
[2022-10-09] MEDS: ENOXAPARIN SODIUM 30 MG/0.3 ML SYRINGE SUBCUT SCH (22:16)
[2022-10-10] VITALS: BP_SYST 161
[2022-10-10] MEDS: hydrALAZINE HCL 20 MG/ML VIAL IVP PRN (01:38)
[2022-10-10] MEDS: KCL 20 mEq in D5/0.45NS 1000mL 1,000 ML IV SCH (05:30)
[2022-10-10] MEDS: LevALBUTEROL HCL 1.25 MG/0.5 ML *CONC.* VIAL.NEB (XOPENEX CONC.) INH SCH ×2 (07:30→15:47)
[2022-10-10] MEDS: BUDESONIDE 0.5 MG/2 ML AMPUL.NEB INH SCH ×2 (07:31→20:15)
--- NOTE | 2022-10-10 07:38 | NUR ---
OPENING NOTES: RECEIVED BEDSIDE SBAR BY PM SHIFT NURSE, PATIENT RESTING WELL IN BED WITH EYES CLOSED, NO S/S OF DISTRESS AT THIS TIME BED AT LOCKED AND LOW POSITION, CALL LIGHT IN REACH ALL SAFETY CHECKS DONE FOR AM. WILL CONT TO MONITOR PATIENT PER ORDERS.
[2022-10-10] MEDS: predniSONE 10 MG TABLET PO SCH ×2 (10:05→20:46)
[2022-10-10] MEDS: ATORVASTATIN 10 MG TABLET PO SCH (10:05)
[2022-10-10] MEDS: amLODIPine BESYLATE 5 MG TABLET PO SCH (10:06)
[2022-10-10] MEDS: PANTOPRAZOLE SODIUM 40 MG/VIAL (PROTONIX) IVP SCH (10:15)
[2022-10-10 11:18] VITALS: BP_SYST 144
[2022-10-10 15:53] VITALS: BP_SYST 150
[2022-10-10] MEDS: cefTRIAXone 1 GM in D5W 50 ML IV SCH (16:03)
--- NOTE | 2022-10-10 18:39 | NUR ---
CLOSING NOTES: PATIENT REMAIN STABLE NO S/S OF DISTRESS,NON-LABOR BREATHING, IV INTACT, ALL NEEDS MET, ALL SAFETY CHECKS DONE THOUGHT OUT THE DAY. BED AT LOCKED AND LOW POSITION CALL LIGHT IN REACH WILL GIVE BEDSIDE SBAR TO PM SHIFT NURSE.
[2022-10-10 19:40] VITALS: BP_SYST 154
--- NOTE | 2022-10-10 19:40 | NUR ---
PM ASSESSMENT; -Pt is a/xo3-4, resting in bed. Pt denies any chest pain,pain,sob,or any acute distress. Hammond cath w/ gravity drains yellow urine output. Pt is on 2L nc oxy, l6omy=330%. Midline JASMYN patent drsg cdi. Discussed poc,all safety measures, pt verbalized understanding. Fall precaution in place. Side rails x3,call light w/in reach. Cont to monitor pt.
[2022-10-10] MEDS: ENOXAPARIN SODIUM 30 MG/0.3 ML SYRINGE SUBCUT SCH (20:46)
[2022-10-10] MEDS: ACETAMINOPHEN 325 MG TABLET PO PRN (20:47)
--- NOTE | 2022-10-10 22:10 | NUR ---
ROUNDS; -Pt is resting in bed. No s/s any acute distress noted. All safety measures in place. Call light w/in reach. Cont to monitor pt.
[2022-10-11] MEDS: LevALBUTEROL HCL 1.25 MG/0.5 ML *CONC.* VIAL.NEB (XOPENEX CONC.) INH SCH ×2 (00:44→07:42)
--- NOTE | 2022-10-11 00:45 | NUR ---
ROUNDS; -Pt is asleep. No s/s any acute distress noted. All safety measures in place. Call light w/in reach. Cont to monitor pt.
[2022-10-11 01:19] VITALS: BP_SYST 154
[2022-10-11] MEDS: KCL 20 mEq in D5/0.45NS 1000mL 1,000 ML IV SCH (01:25)
--- NOTE | 2022-10-11 03:50 | NUR ---
ROUNDS; -Pt is asleep. No s/s any acute distress noted. All safety measures in place. Call light w/in reach. Cont to monitor pt.
--- NOTE | 2022-10-11 06:37 | NUR ---
CLOSING NOTES; -Pt is resting in bed. NO s/s any chest pain,pain,sob,or any acute distress noted. Hammond cath w/ gravity drains yellow urine output. Midline JASMYN patent drsg cdi. Fall precaution in place. Side rails x3,call light w/in reach. Pt's condition stable. Will endorse to next nurse to cont care.
[2022-10-11] MEDS: BUDESONIDE 0.5 MG/2 ML AMPUL.NEB INH SCH (07:42)
--- NOTE | 2022-10-11 07:52 | NUR ---
OPENING NOTES: RECEIVED BEDSIDE SBAR FROM PM SHIFT NURSE, PATIENT IS STABLE, NO S/S OF DISTRESS, NON LABOR BREATHING, IV INTACT BED AT LOW AND LOCKED POSITION, CALL LIGHT IN REACH, ALL SAFETY CHECKS DONE AT THIS TIME. WILL MONITOR PATIENT PER ORDERS.
--- NOTE | 2022-10-11 07:53 | NUR ---
PHYSICAL THERAPY CO-SIGN The Physical Therapy Progress Notes documented by Metallurgical Engineering Technician have been reviewed. Reviewed/Co-Signed by: Immanuel Crockett Documentation Done by: KEYSHA FERNANDO PTA Addendum: 10/11/22 at 0754 by Immanuel Crockett PT Amended: Links added.
[2022-10-11] MEDS: ATORVASTATIN 10 MG TABLET PO SCH (09:13)
[2022-10-11] MEDS: amLODIPine BESYLATE 5 MG TABLET PO SCH (09:16)
[2022-10-11] MEDS: predniSONE 10 MG TABLET PO SCH (09:21)
[2022-10-11] MEDS: ACETAMINOPHEN 325 MG TABLET PO PRN (09:21)
[2022-10-11] MEDS: PANTOPRAZOLE SODIUM 40 MG/VIAL (PROTONIX) IVP SCH (10:00)
[2022-10-11 11:11] VITALS: BP_SYST 130
--- NOTE | 2022-10-11 13:04 | NUR ---
PATIENT REFUSED PT TREATMENT TODAY PATIENT STATES SHE'S NOT FEELING LIKE IT TODAY. MAX ENCOURAGEMENT WAS GIVEN.
[2022-10-11 13:32] VITALS: BP_SYST 137
--- NOTE | 2022-10-11 15:13 | NUR ---
D/C Patient Patient given medication reconciliation form and D/C instructions. Exit Care provided. Patient verbalized understanding. MD discussed with patient the results and treatment provided. Ambulatory with steady gait for discharge to home. Patient in stable condition, ID band removed. IV catheter removed, intact and dressing applied, no active bleeding. Rx of AUGMENTIN given. Patient educated on pain management. All belongings sent with patient.
--- NOTE | 2022-10-11 15:41 | NUR ---
CM: Per Jet/cm instructed to fax HH referral to [facility] ipa fax # , tel [phone]. [facility] is not in net work , dr. Palafox made aware.
--- NOTE | 2022-10-12 09:18 | NUR ---
CM: informed Jet, the pt was dc yesterday, still needs HH set up. Per Jet, will contact pt with HH info and visiting schedule.
== END 2022-10-11 15:00 | disposition home health service (06) | DRG 100 ==
LOC: SED 03:09 → STU 04:53 → SMU 10-08 13:14
PROVIDERS: ADMIT Family Medicine; ATTEND Family Medicine
PROC: 05HY33Z Insertion of Infusion Device into Upper Vein, Percutaneous Approach (ICD-10-PCS; 2022-10-06)
PROC: B54MZZA Ultrasonography of Right Upper Extremity Veins, Guidance (ICD-10-PCS; 2022-10-06)
PROC: 4A00X4Z Measurement of Central Nervous Electrical Activity, External Approach (ICD-10-PCS; principal; 2022-10-08)
DX: G40.909 Epilepsy, unspecified, not intractable, without status epilepticus (principal); J69.0 Pneumonitis due to inhalation of food and vomit; J96.21 Acute and chronic respiratory failure with hypoxia; N39.0 Urinary tract infection, site not specified; J44.0 Chronic obstructive pulmonary disease with (acute) lower respiratory infection; G93.40 Encephalopathy, unspecified; K21.9 Gastro-esophageal reflux disease without esophagitis; F31.9 Bipolar disorder, unspecified; E78.5 Hyperlipidemia, unspecified; M81.0 Age-related osteoporosis without current pathological fracture; Z96.649 Presence of unspecified artificial hip joint; J44.9 Chronic obstructive pulmonary disease, unspecified; I10 Essential (primary) hypertension; Z20.822 Contact with and (suspected) exposure to COVID-19; Z96.659 Presence of unspecified artificial knee joint; B96.20 Unspecified Escherichia coli [E. coli] as the cause of diseases classified elsewhere; F17.200 Nicotine dependence, unspecified, uncomplicated; Z79.899 Other long term (current) drug therapy; Z79.84 Long term (current) use of oral hypoglycemic drugs
CPT/HCPCS: 36415; 70450-TC; 71045; 76376; 80048; 80053; 80307; 81000; 82962; 83605; 83735; 85025; 85610-TC; 85730-TC; 87040; 87086; 92610-GN; 93005; 94640; 94760; 95816; 96365; 96367; 96368; 97110-GP; 97112-GP; 97530-GP; 99285; C1751; C9113; G0378; J0360; J0692; J0696; J1630; J1650; J1953; J2543; J3370; J7050; J7060; J7512; J7612; J7626